=== PATIENT | male | born 1965 | race Caucasian/White ===

== ENCOUNTER 2016-12-14 01:15 | Emergency (ER) | payer MEDICARE ==
--- NOTE | 2016-12-14 01:33 | ED ---
General Adult HPI - General Stated complaint: overdose Time Seen by Provider: 12/14/16 01:24 Source: patient, police, EMS, RN notes reviewed Mode of arrival: EMS Limitations: no limitations - History of Present Illness Initial comments: Patient is a 51-year-old male presenting to the emergency department for decreased mental status. Patient was found at a house and bystander states he was using drugs. Reportedly he was snorting opiates. Patient denies this. Patient states he feels fine other than being drowsy. Patient states he was slightly confused and he was woken up by the police. Patient otherwise denies any complaints. No headache. No confusion. No weakness. No chest pain or dyspnea. No abdominal pain. - Related Data Home Medications Medication Instructions Recorded Confirmed Amitriptyline HCl [Elavil] 25 mg PO HS 10/22/16 10/27/16 DULoxetine HCL [Cymbalta] 30 mg PO BID 10/22/16 10/27/16 Gabapentin 800 mg PO TID 10/22/16 10/27/16 Ibuprofen [Motrin] 800 mg PO TID PRN 10/22/16 10/27/16 Mometasone/Formoterol [Dulera 200 2 puff INHALATION RT-BID 10/22/16 10/27/16 Mcg/5 Mcg Inhaler] Omeprazole 20 mg PO DAILY 10/22/16 10/27/16 clonazePAM [KlonoPIN] 2 mg PO BID 10/22/16 10/27/16 sulfaSALAzine [Azulfidine] 500 mg PO QID 10/22/16 10/27/16 Previous Rx's Medication Instructions Recorded Aspirin EC [Ecotrin Low Dose] 81 mg PO DAILY #30 tablet.dr 10/24/16 HYDROcodone/APAP 5-325MG [[place] 1 each PO Q6HR PRN #20 tab 10/24/16 5-325] Levofloxacin [Levaquin] 500 mg PO HS #7 tab 10/24/16 Nicotine 21Mg/24Hr Patch [Habitrol] 1 patch TRANSDERM DAILY #30 patch 10/24/16 Ciprofloxacin HCl [Cipro] 500 mg PO Q12HR #14 tablet 10/27/16 Allergies Allergy/AdvReac Type Severity Reaction Status Date / Time No Known Allergies Allergy Verified 10/27/16 22:11 Review of Systems ROS Statement: Those systems with pertinent positive or pertinent negative responses have been documented in the HPI. ROS Other: All systems not noted in ROS Statement are negative. Constitutional: Denies: fever Eyes: Denies: eye pain ENT: Denies: ear pain Respiratory: Denies: cough Cardiovascular: Denies: chest pain Endocrine: Denies: fatigue Gastrointestinal: Denies: abdominal pain Genitourinary: Denies: dysuria Musculoskeletal: Denies: back pain Skin: Denies: rash Neurological: Denies: weakness Psychiatric: Denies: anxiety, depression, suicidal thoughts Past Medical History Past Medical History: Asthma, Cancer, COPD, Diabetes Mellitus, Fibromyalgia, GERD/Reflux, Hypertension, Rheumatoid Arthritis (RA) Additional Past Medical History / Comment(s): pancreatic cancer, BPH, insomnia, IBS, dizziness, chronic pain History of Any Multi-Drug Resistant Organisms: None Reported Past Surgical History: Prostate Surgery Past Anesthesia/Blood Transfusion Reactions: No Reported Reaction Past Psychological History: Anxiety, Depression, PTSD Smoking Status: Current every day smoker Past Alcohol Use History: Heavy Additional Past Alcohol Use History / Comment(s): HX of abuse, states last drink 8 years ago Past Drug Use History: Heroin, Prescription Drug Abuse Additional Drug Use History / Comment(s): Hx of drug abuse, states last used heroin 3 years ago - Past Family History Mother Family Medical History: No Reported History Father Family Medical History: No Reported History General Exam Limitations: no limitations General appearance: other (Patient is drowsy but easily arousable to light touch.) Head exam: Present: atraumatic, normocephalic Eye exam: Present: normal appearance, PERRL, EOMI ENT exam: Present: normal oropharynx Neck exam: Present: normal inspection Respiratory exam: Present: normal lung sounds bilaterally Cardiovascular Exam: Present: regular rate, normal rhythm GI/Abdominal exam: Present: soft. Absent: tenderness Extremities exam: Present: normal inspection Neurological exam: Present: oriented X3, CN II-XII intact. Absent: motor sensory deficit Expanded Patient oriented to: Present: person, place, time Motor strength exam: RUE: 5, LUE: 5, RLE: 5, LLE: 5 Eye Response: (4) open spontaneously Motor Response: (6) obeys commands Verbal Response: (5) oriented Psychiatric exam: Present: normal affect, normal mood Skin exam: Absent: rash Course Vital Signs 12/14/16 12/14/16 01:20 01:39 Temperature 96.9 F L Pulse Rate 76 Respiratory 18 Rate Blood Pressure 117/67 O2 Sat by Pulse 89 L 98 Oximetry - Reevaluation(s) Reevaluation #1: 12/14/16 01:53 Patient reexamined and is more alert. Patient does admit now to snorting heroin. EKG Findings - EKG Comments: EKG Findings:: Normal sinus rhythm 74. Normal intervals. Left axis. Left anterior fascicular block. No acute ST change. Medical Decision Making - Medical Decision Making Patient reexamined and is alert and appropriate. Patient never received Narcan. Patient feels comfortable with discharge. Disposition Clinical Impression: Opiate overdose Disposition: HOME SELF-CARE Condition: Stable Instructions: Opioid Overdose (ED) Additional Instructions: Discontinue drug use. Return for weakness, change in mental status, drowsiness , worsening symptoms or other concerns. Referrals: Terri Moore MD [Primary Care Provider] - 1-2 days
[2016-12-14 01:39] VITALS: RESP 18
[2016-12-14 02:40] VITALS: BP 108/76; PULSE 80; TEMP 98
== END 2016-12-14 02:39 | disposition home or self-care (01) ==
LOC: EC 01:15
DX: T40.1X1A Poisoning by heroin, accidental (unintentional), initial encounter (principal); R41.82 Altered mental status, unspecified; Z79.899 Other long term (current) drug therapy; Z79.82 Long term (current) use of aspirin; Z79.51 Long term (current) use of inhaled steroids; K21.9 Gastro-esophageal reflux disease without esophagitis; J44.9 Chronic obstructive pulmonary disease, unspecified; M79.7 Fibromyalgia; F17.200 Nicotine dependence, unspecified, uncomplicated; F41.9 Anxiety disorder, unspecified; F32.9 Major depressive disorder, single episode, unspecified; F43.10 Post-traumatic stress disorder, unspecified
CPT/HCPCS: 93005; 99284